=== PATIENT | male | born 1950 | race Caucasian/White ===

== ENCOUNTER 2023-01-14 18:22 | Emergency (ER) | payer MEDICARE ==
[2023-01-14 20:15] LABS: SARS-CoV-2 NAA Rapid Test Not Detected (NotDetected)
== END 2023-01-14 20:09 | disposition home or self-care (01) ==
LOC: CSHERS 18:22
DX: J32.0 Chronic maxillary sinusitis (principal); Z20.822 Contact with and (suspected) exposure to COVID-19; I10 Essential (primary) hypertension; I25.10 Atherosclerotic heart disease of native coronary artery without angina pectoris
CPT/HCPCS: 0240U; 71045; 99283

== ENCOUNTER 2023-03-23 10:13 | Emergency (ER) | payer MEDICARE ==
[2023-03-23] MEDS ORDERED: Dexamethasone 10 MG/ML VIAL ONE (11:06)
== END 2023-03-23 11:07 | disposition home or self-care (01) ==
LOC: CSHERS 10:13
DX: H81.391 Other peripheral vertigo, right ear (principal); I10 Essential (primary) hypertension; I25.10 Atherosclerotic heart disease of native coronary artery without angina pectoris
CPT/HCPCS: 93005; 99283; J1100

== ENCOUNTER 2025-07-13 10:22 | Emergency (ER) | payer MEDICARE ==
[2025-07-13 11:53] LABS: Glucose, Urine (Dipstick) Normal (Negative); Leukocyte Negative (Negative); Protein, Urine (Dipstick) Negative (Neg-Trace); Specific Gravity, Urine 1.010 (1.005-1.030)
[2025-07-13 12:12] LABS: Bacteria/HPF Rare-Few HPF (None Seen); RBC/HPF 0-3 HPF (0-3); WBC/HPF 0-3 HPF (0-3)
[2025-07-13] MEDS ORDERED: Acetaminophen 500 MG TAB ONE (13:09)
== END 2025-07-13 14:51 | disposition home or self-care (01) ==
LOC: CSHERS 10:22
DX: M54.50 Low back pain, unspecified (principal); R10.9 Unspecified abdominal pain; I10 Essential (primary) hypertension; I25.10 Atherosclerotic heart disease of native coronary artery without angina pectoris; I48.91 Unspecified atrial fibrillation; Z79.01 Long term (current) use of anticoagulants; Z79.899 Other long term (current) drug therapy; X50.1XXA Overexertion from prolonged static or awkward postures, initial encounter
CPT/HCPCS: 74176; 81001